=== PATIENT | male | born 1945 | race Caucasian/White ===

== ENCOUNTER 2017-09-29 17:55 | Emergency (ER) | payer MEDICARE, OTHER ==
[~2017-09-29] VITALS: Ht 172.7 cm; Wt 83.9 kg
[2017-09-29] MEDS ORDERED: LISI20 PO (20:09)
[2017-09-29] MEDS ORDERED: GABA300 PO (20:09)
[2017-09-29] MEDS ORDERED: LEVSOD125 PO (20:09)
[2017-09-29] MEDS ORDERED: LOVA40 (20:09)
[2017-09-29] MEDS ORDERED: VENL25 PO (20:10)
[2017-09-29] MEDS ORDERED: XARELTO15 MG PO (21:07)
[2017-09-29] MEDS ORDERED: XARELTO20 MG PO (21:09)
== END 2017-09-29 21:27 | disposition home or self-care (01) ==
LOC: ER 17:55
DX: I82.432 Acute embolism and thrombosis of left popliteal vein (principal); Z88.2 Allergy status to sulfonamides; Z79.899 Other long term (current) drug therapy
CPT/HCPCS: 93971; 99284

== ENCOUNTER 2022-04-10 10:41 | Emergency (ER) | payer MEDICARE, OTHER ==
[~2022-04-10] VITALS: Ht 172.7 cm; Wt 78.0 kg
[~2022-04-10 10:41] MED LIST: GABA300 PO; LEVSOD125 PO; LISI20 PO; LOVA40; VENL25 PO; XARELTO15 MG PO; XARELTO20 MG PO
== END 2022-04-10 12:54 | disposition home or self-care (01) ==
LOC: ER 10:41
DX: M79.662 Pain in left lower leg (principal); Z88.2 Allergy status to sulfonamides; Z79.890 Hormone replacement therapy; Z79.02 Long term (current) use of antithrombotics/antiplatelets; Z79.899 Other long term (current) drug therapy
CPT/HCPCS: 93971; 99283